=== PATIENT | female | born 1980 | race Caucasian/White ===

== ENCOUNTER 2016-11-23 22:25 | Emergency (ER) | payer MEDICARE, OTHER ==
[~2016-11-23 22:25] MED LIST: ABILIFY2 MG PO; ALBUTEROL IN200 PUFF INH; CARAFATE1 GM PO; LEVAQUIN750 MG PO; PANTOPRAZOLE SO40 MG PO; PREDNISONE10 MG PO; TESSALON PERLE100 MG PO; TYLENOL325 M1 PO; ZOLOFT100 MG PO
== END 2016-11-24 02:00 | disposition home or self-care (01) ==
LOC: ER 22:25
DX: J06.9 Acute upper respiratory infection, unspecified (principal); J02.9 Acute pharyngitis, unspecified; R05 Cough; F32.9 Major depressive disorder, single episode, unspecified; F41.9 Anxiety disorder, unspecified; Z79.899 Other long term (current) drug therapy; Z88.6 Allergy status to analgesic agent; Z98.51 Tubal ligation status
CPT/HCPCS: 87070; 87880; 96372; 99283; 99283-25

== ENCOUNTER 2016-11-26 10:06 | Emergency (ER) | payer MEDICARE, OTHER | END 2016-11-26 11:11 | disposition home or self-care (01) | LOC: ER 10:06 | DX: M54.9 Dorsalgia, unspecified (principal); M79.605 Pain in left leg; F31.9 Bipolar disorder, unspecified; F20.9 Schizophrenia, unspecified; Z79.899 Other long term (current) drug therapy; Z88.6 Allergy status to analgesic agent | CPT/HCPCS: 96372; 99282-25; 99283; J1030 ==